=== PATIENT | male | born 1970 | race Caucasian/White ===

== ENCOUNTER 2021-02-11 12:55 | Emergency (ER) | payer OTHER, SELFPAY ==
[2021-02-11 13:01] VITALS: BP 127/69; PULSE 60; RESP 16; TEMP 37.3; O2SAT 98
--- NOTE | 2021-02-11 13:19 | W.ED.GENAD ---
Discharge Plan Disposition Patient Disposition: HOME Condition: Stable Discharge Details Clinical Impression: Ankle sprain, Laceration of leg Primary Care Provider: Unknown,Unknown ED Provider: Rama Bass Home Meds and New Rx's Prescriptions: New cephalexin 500 mg capsule 500 mg PO QID 5 Days Qty: 20 RF: 0 Continued tacrolimus 4 mg Tablet Extended Release 24 Hr 4 mg PO BID RF: 0 mycophenolate sodium [Myfortic] 360 mg Tablet,Delayed Release (Dr/Ec) 360 mg PO BID RF: 0 prednisone 5 mg Tablet 5 mg PO QAM RF: 0 magnesium 500 mg Tablet 1,000 mg PO DAILY RF: 0 lisinopril 5 mg Tablet 5 mg PO DAILY RF: 0 atorvastatin 20 mg Tablet 20 mg PO DAILY RF: 0 Discharge Instructions Instructions: Ankle Sprain (ED), Laceration (ED) Additional Instructions: Your x-ray is reassuring. No fracture or dislocation. Likely sprain. Please encourage rest, ice, elevation. Tylenol and/or ibuprofen as needed for discomfort. Please continue with brace for the next 2 weeks until pain resolves. In regard to the wounds, please keep wound clean, dry and covered. Monitor for signs of infection occluding redness, warmth, drainage, increased pain, fever/chills. If you develop these or other new/worsening symptoms to seek care urgently once again. Please tell prevent infection, please take antibiotics as prescribed. First dose was given here this afternoon. Please follow-up with primary care in the next 12 to 14 days for reevaluation as well as suture removal. Discharge Data Discharge Date/Time-TO BE ENTERED AT DEPARTURE: 02/11/21 16:45 Medical Decision Making Patient is a pleasant 50-year-old gentleman presents today with chief complaint of left ankle pain. He reports a prior to arrival he was mountain biking when he came off the pedal landing on the left foot suffered a extension injury. Since then, has been having difficulty with ambulation. Came in with antalgic gait. States that pain is primarily along the lateral aspect. Denies any numbness or tingling. Denies other injury the time of the incident. No previous fracture. Does state that he has sent her sprains in the past. Suffered an abrasion posterior aspect which she states cleansed and put dressing on. He reports his tetanus is up-to-date. On exam, patient has notable swelling and discomfort to the lateral malleolus. No palpable deformity. Achilles intact. No pain over the medial malleolus. No pain about the foot, proximal fifth metatarsal or calcaneus. No pain over the proximal fibula. We will give Tylenol to help with discomfort and obtain XR. Patient reports Tdap one year ago prior to his kidney transplant. FINDINGS: Bones/joints: There is no evidence of acute fracture.There is no evidence of malalignment or dislocation. Soft tissues: Bimalleolar soft tissue swelling. IMPRESSION: There is no evidence of acute fracture.There is no evidence of malalignment or dislocation. Discussed findings with the patient. Evaluated the wounds. He has 2 wounds into subQ that are jagged to the medial aspect of hte left ankle. No surrounding erythema, warmth, drainage. Crepitus palpated around wounds and inferior to them. Small amount of active bleeding. Upper, posterior wound is inverted V shaped laceration with jagged wound. Lower aspects are able to be reapproximated although tip of the V is avulsed. Inferior laceration again is jagged and small strip of tissue appears to have been avulsed. These edges are able to be loosely approximated. Patient and I discussed risks/benefits of suture closure. He voices understanding and wishes to proceed. Please see procedure note. Patient tolerated this well. Wounds were copiously irrigateed and explored to base in a bloodless field. No FB or debris noted. Wound edges were debrided and reapproximated. We discussed wound care in depth. Discussed care for the ankle sprain. Encouraged RICE. Will fit with a brace. He is from [place] but will f/u with PCP for wound check and suture removal in 2 weeks. REturn precautions discussed. All of his quesitons and concerns were addressed, he is in agreement wit this plan. HPI General Mode of arrival: ambulatory. Date/Time Provider Initiated Documentation: 02/11/21 13:19. Limitations to Documentation: no limitations. Information obtained by: patient and RN notes reviewed. History of Present Illness 50 year old M presents to the emergency department with the chief complaint of left ankle pain and abrasion, described as mild, with intensity rated at 2. Quality is described as aching, and is localized to the left and lower extremity. Patient reports no radiation. Patient started experiencing this minute(s) and it has been constant. Immobilization improves symptom(s), Movement worsens symptoms . Patient notes no other symptoms.. Patient did receive the following treatments prior to arrival, other (cleansed the wound, applied dressing) Related Data Home Medications Medication Instructions Recorded Confirmed atorvastatin 20 mg PO DAILY 02/11/21 02/11/21 cephalexin 500 mg PO QID 5 Days #20 cap 02/11/21 lisinopril 5 mg PO DAILY 02/11/21 02/11/21 magnesium 1,000 mg PO DAILY 02/11/21 02/11/21 mycophenolate sodium [Myfortic] 360 mg PO BID 02/11/21 02/11/21 prednisone 5 mg PO QAM 02/11/21 02/11/21 tacrolimus 4 mg PO BID 02/11/21 02/11/21 Previous Rx's Medication Instructions Recorded cephalexin 500 mg PO QID 5 Days #20 cap 02/11/21 Allergies Allergy/AdvReac Type Severity Reaction Status Date / Time Penicillins AdvReac Mild Skin Rash Unverified 02/11/21 13:08 General Stated Complaint: Orthopedic HORACIO: 4 Review of Systems Constitutional Constitutional: Reports as per HPI, Denies chills, Denies fever(s), Denies headache(s) and Denies weakness ENT Ears, Nose, Mouth, and Throat: Denies headache(s) Musculoskeletal Musculoskeletal: Reports as per HPI and Denies tingling Integumentary/Breasts Skin/Breast: Reports as per HPI, Denies rash and Reports wounds Neurologic Neurologic: Reports as per HPI, Denies headache(s), Denies tingling, Denies paresthesias and Denies weakness [facility] Social History Smoking/Tobacco Use Status: Never Smoking risk assessment performed?: Yes Alcohol Intake: current Alcohol Intake frequency: a few times a month Substance use type: does not use Do you feel safe at home: Yes Do you feel safe in your relationship?: Yes Exam Const General: cooperative, healthy appearing, comfortable, no acute distress, well developed and well groomed Nutritional Appearance: average body habitus and well nourished Orientation: alert and awake Resp Effort & Inspection: normal respiratory effort, able to speak in complete sentences and no respiratory distress Cardio Rate: regular rate Rhythm: regular rhythm Skin Trauma: laceration (jagged lacerations left medial ankle) Neuro General: patient alert and patient awake Cognition: normal cognition Speech: speech normal Gait: antalgic Motor: muscle tone normal throughout Sensory Exam: no sensory deficits noted Extrem Ankle/foot/toe images: 1. Area of pain and swelling. No palpable deformity. Maximal pain over the lateral malleolus although some discomfort over ATFL. Achilles intact. No pain over calcaneus. 5th metatarsal non tender. No pain over proximal fibula. Senstation intact. Capillary refill intact. 2. 3. Areas of jagged lacerations. V shaped laceration superior and posterior to more linear wound. Sections of skin appears to be avulsed. Palpable crepitus around wounds. Psych Appearance: grossly normal and well kempt Mental Status: mental status grossly normal Speech and Movement: speech and movement normal Course Vital Signs Vital signs: Vital Signs Temperature 37.3 C 02/11/21 13:01 Pulse 60 02/11/21 13:01 Respiratory Rate 16 02/11/21 13:01 Blood Pressure 127/69 02/11/21 13:01 Pulse Oximetry 98 02/11/21 13:01 Temperature 37.3 C 02/11/21 13:01 Temperature Source Skin 02/11/21 13:01 Pulse 60 02/11/21 13:01 Respiratory Rate 16 02/11/21 13:01 Respiratory Effort 02/11/21 13:13 Blood Pressure 127/69 02/11/21 13:01 Blood Pressure Position Sitting 02/11/21 13:01 Pulse Oximetry 98 02/11/21 13:01 Oxygen Delivery Method Room Air 02/11/21 13:01 Oxygen Flow Rate 0 02/11/21 13:01 Pain Level 2 02/11/21 13:01
--- NOTE | 2021-02-11 13:30 | DI.RAD_ITS ---
Exam(s) XR ANKLE LT COMPLETE EXAM: XR ANKLE LT COMPLETE CLINICAL HISTORY: lateral pain after rotational injury. TECHNIQUE: 2D digital imaging was performed. COMPARISON: No exams were available for comparison FINDINGS: There is soft tissue swelling laterally. There appears to be some air in the posterior soft tissues. There are no fractures. Talar dome appears unremarkable. Some calcification is noted at the inser tional aspect of the Achilles on the posterior aspect of the calcaneus. Small inferior calcaneal spu r is noted. Some calcification is noted in the posterior tibial artery in this 50-year-old patient a s well as faint calcification in the dorsalis pedis. There are no degenerative changes in the articu lations of the hindfoot. No osseous tarsal coalition. Impression soft tissue swelling. No fracture s. However, there appears to be some air in posterior soft tissues. Correlation with any the recent puncture wound recommended. There is no radiographic evidence of osteomyelitis. IMPRESSION: DATA REPOSITORY: RADIATION DOSE DELIVERED:
[2021-02-11] MEDS: Acetaminophen 325 MG TAB 650 MG PO (13:38)
--- NOTE | 2021-02-11 15:56 | DI.VRAD_ITS ---
PROCEDURE INFORMATION: Exam: XR Left Ankle Exam date and time: 02/11/2021 1:32 PM Age: 50 years old Clinical indication: Injury or trauma; Fall; Blunt trauma; Ankle; Left; Injury date: 02/11/21 TECHNIQUE: Imaging protocol: XR Left ankle. Views: 3 or more views. COMPARISON: No relevant prior studies available. FINDINGS: Bones/joints: There is no evidence of acute fracture.There is no evidence of malalignment or dislocation. Soft tissues: Bimalleolar soft tissue swelling. IMPRESSION: There is no evidence of acute fracture.There is no evidence of malalignment or dislocation. Dictated and Authenticated by: Ileana Kinney MD. Ordering:SHABBIR Ontiveros MD
[2021-02-11] MEDS: Cephalexin 500 MG CAP PO (15:59)
[2021-02-11] MEDS: Cephalexin 500 MG CAP, 4 CAPS/BTL PO (16:24)
== END 2021-02-11 16:45 | disposition home or self-care (01) ==
PROVIDERS: Emergency Provider Physician Assistant
DX: S93.492A Sprain of other ligament of left ankle, initial encounter (principal); S91.012A Laceration without foreign body, left ankle, initial encounter; X58.XXXA Exposure to other specified factors, initial encounter
CPT/HCPCS: 90471; 99284; 73610; 99283